=== PATIENT | male | born 1980 | race Caucasian/White ===

== ENCOUNTER 2019-11-22 18:14 | Emergency (ER) | payer OTHER ==
[2019-11-22 18:23] VITALS: RESP 18; TEMP 98
[2019-11-22] MEDS ORDERED: MORPHINE SULFATE 4 MG/ML SYRINGE IM STA (18:29)
[2019-11-22] MEDS ORDERED: LIDOCAINE 1% INJ 10MG/ML (20 ML MDV) SQ ONE (18:29)
[2019-11-22] MEDS ORDERED: KETOROLAC 30 MG/ML 1 ML VIAL IM STA (18:29)
--- NOTE | 2019-11-22 18:53 | ED ---
Wound/Laceration HPI - General Chief Complaint: Wound/Laceration Stated Complaint: Finger lacs-Table saw Time Seen by Provider: 11/22/19 18:22 Source: patient Mode of arrival: ambulatory Limitations: no limitations - History of Present Illness Initial Comments: 39-year-old male patient presents to the emergency department today for evaluation of injury to the right hand. Patient states approximately 20 minutes ago he was working at his table saw when he slipped and cut his fingers on the right hand. Patient states he is having severe pain to the distal aspects of the second, third, fourth digits on the right hand. Patient denies numbness or tingling to the fingers. Denies any other injuries. States his last tetanus vaccine was 3 months ago. Patient denies any headache, neck pain, back pain, chest pain, shortness of breath, dizziness, weakness, abdominal pain, nausea, vomiting, or difficulties with bowel movements or urination. - Related Data Previous Rx's Medication Instructions Recorded Cephalexin [Keflex] 500 mg PO Q6H #28 cap 11/22/19 Ibuprofen 800 mg PO TID PRN #30 tablet 11/22/19 Allergies Allergy/AdvReac Type Severity Reaction Status Date / Time No Known Allergies Allergy Verified 11/22/19 18:23 Review of Systems ROS Statement: Those systems with pertinent positive or pertinent negative responses have been documented in the HPI. ROS Other: All systems not noted in ROS Statement are negative. Past Medical History Past Medical History: No Reported History History of Any Multi-Drug Resistant Organisms: None Reported Past Surgical History: No Surgical Hx Reported Past Psychological History: No Psychological Hx Reported Smoking Status: Current some day smoker Past Alcohol Use History: None Reported Past Drug Use History: None Reported General Exam Limitations: no limitations General appearance: alert, in no apparent distress, other (Physical well- developed, well-nourished adult male patient in no acute distress. Vital signs upon presentation are temperature 98.0F, pulse 98, respirations 18, blood pressure 130/110, pulse ox 98% on room air.) Respiratory exam: Present: normal lung sounds bilaterally. Absent: respiratory distress, wheezes, rales, rhonchi, stridor Cardiovascular Exam: Present: regular rate, normal rhythm, normal heart sounds. Absent: systolic murmur, diastolic murmur, rubs, gallop, clicks Extremities exam: Present: full ROM, tenderness (Distal aspect of the second, third, fourth digits on the right hand), normal capillary refill, other (There are lacerations noted over the lateral aspects of the left second, third, fourth digit on the right hand. 2 fingers have nail involvement. Skin is otherwise pink, warm, dry. Cap refills less than 3 seconds. Radial pulses 2+ and equal bilaterally.). Absent: normal inspection, pedal edema, joint swelling, calf tenderness Neurological exam: Present: alert, oriented X3, CN II-XII intact Psychiatric exam: Present: normal affect, normal mood Skin exam: Present: warm, dry, intact, normal color. Absent: rash Course Vital Signs 11/22/19 11/22/19 18:21 20:14 Temperature 98.0 F 98.0 F Pulse Rate 98 85 Respiratory 18 18 Rate Blood Pressure 130/110 119/84 O2 Sat by Pulse 98 97 Oximetry Procedures - Laceration Laceration #1 Indication: laceration Site: hand (Right index finger) Size (cm): 2 Description: linear Depth: simple, single layer Anesthetic Used: lidocaine 1% Anesthesia Technique: nerve block Amount (mls): 4 Pre-repair: irrigated extensively Type of Sutures: nylon Size of Sutures: 5-0 Number of Sutures: 3 Technique: simple, interrupted Patient Tolerated Procedure: well, no complications Laceration #2 Consent Obtained: verbal consent Indication: laceration Site: hand (Right middle finger) Size (cm): 3 Description: irregular Depth: simple, single layer Anesthetic Used: lidocaine 1% Anesthesia Technique: nerve block Amount (mls): 4 Pre-repair: irrigated extensively Type of Sutures: nylon Size of Sutures: 5-0 Number of Sutures: 6 Technique: simple, interrupted Patient Tolerated Procedure: well, no complications Laceration #3 Consent Obtained: verbal consent Indication: laceration Site: hand (Right ring finger) Size (cm): 3 Description: irregular Depth: simple, single layer Anesthetic Used: lidocaine 1% Anesthesia Technique: local infiltration, nerve block Amount (mls): 2 Pre-repair: irrigated extensively Type of Sutures: nylon Size of Sutures: 5-0 Number of Sutures: 3 Technique: simple, interrupted Patient Tolerated Procedure: well, no complications Medical Decision Making - Medical Decision Making 39-year-old male patient presents to the emergency department today for evaluation of lacerations to the right second, third, fourth digits. Patient was using a table saw with a ripping blade. The patient states that he slipped from the piece of wood and cut his hand. He was wearing a glove at the time. Physical examination did reveal laceration to the distal tip of the right index finger, the lateral aspects of the right middle finger, and the lateral aspect of the right ring finger with nail involvement. X-ray obtained did reveal a fracture to the middle phalanx of the right ring finger. Neurovascular status was intact. Full range of motion. Repair was performed as documented. Dressings were applied. He was educated regarding wound care. He is instructed to return in 7 days to have the stitches removed. He is instructed to follow- up with the hand specialist Dr. Nesbitt for further evaluation. Return parameters were discussed in detail. He verbalizes understanding and agrees with this plan. - Radiology Data Radiology results: report reviewed, image reviewed 3 views of the right hand are obtained. Report reviewed in its entirety. Impression by Dr. Villarreal shows laceration deformity. Fracture of the middle phalanx of the ring finger. Disposition Clinical Impression: Laceration of right ring finger, Fracture of middle phalanx of right ring finger, Laceration of right middle finger, Laceration of right index finger w/o foreign body with damage to nail Disposition: HOME SELF-CARE Condition: Good Instructions (If sedation given, give patient instructions): Care For Your Stitches (ED), Laceration (ED), Finger Fracture (ED) Additional Instructions: Follow up with content development specialist for further evaluation as is possible. Complete antibiotic prescription in full. Take pain medication as needed. Return in 7 days to have her sutures removed. Return to the emergency department for any new, worsening, or concerning symptoms. Prescriptions: Ibuprofen 800 mg PO TID PRN #30 tablet PRN Reason: Pain Cephalexin [Keflex] 500 mg PO Q6H #28 cap Is patient prescribed a controlled substance at d/c from ED?: No Referrals: Blaze Nesbtit DO [Medical Doctor] - 1-2 days Time of Disposition: 20:12
[2019-11-22] MEDS ORDERED: ceFAZolin 1,000 MG VIAL (IM USE) IM STA (18:58)
--- NOTE | 2019-11-22 19:06 | XR ---
EXAMINATION TYPE: XR hand complete RT DATE OF EXAM: 11/22/2019 COMPARISON: NONE HISTORY: Aspiration. TECHNIQUE: 3 views FINDINGS: There is soft tissue deformity involving the DIP joints of the middle finger and ring finge r. There is bone loss in fracture line seen on the cortex of the head of the middle phalanx of the ri ng finger. I see no displaced fracture. There is no dislocation. There is no sign of radiopaque forei gn body. There is probably laceration deformity of the tip of the index finger. IMPRESSION: Laceration deformity. Fracture of the middle phalanx of the ring finger.
[2019-11-22] MEDS ORDERED: IBUPROFEN 600 MG STARTER PACK 4 TAB BTL PO STA (20:12)
[2019-11-22] MEDS ORDERED: ACET/COD 300 MG/30 MG STARTER PACK 6 TAB BTL PO STA (20:12)
[2019-11-22 20:15] VITALS: BP 119/84; PULSE 85
== END 2019-11-22 20:22 | disposition home or self-care (01) ==
LOC: EC 18:14
DX: S62.652B Nondisplaced fracture of middle phalanx of right middle finger, initial encounter for open fracture (principal); S61.214A Laceration without foreign body of right ring finger without damage to nail, initial encounter; S61.210A Laceration without foreign body of right index finger without damage to nail, initial encounter; F17.200 Nicotine dependence, unspecified, uncomplicated; W26.8XXA Contact with other sharp object(s), not elsewhere classified, initial encounter; Y93.89 Activity, other specified
CPT/HCPCS: 73130; 12004; 96372 ×3; 99283; J2270; J0690; J2001; J1885